=== PATIENT | male | born 1960 | race Native Hawaiian/Other Pacific Islander ===

== ENCOUNTER 2016-02-10 08:16 | Outpatient (CLI) | payer BC ==
[~2016-02-10 08:16] MED LIST: ALLEGRA ALRG180 M1 PO; AMOX500C85 PO; FLUT0.05 NAS; LEVO0.0218 PO; VIAGRA100 MG OR; ZOLP10TA2 PO
[2016-02-10 08:41] LABS: PLATELET COUNT 206 K/uL (142-355)
[2016-02-10 09:09] LABS: POTASSIUM 4.6 mmol/L (3.6-5.2); SODIUM 138 mmol/L (136-145)
== END 2016-02-10 09:16 | disposition home or self-care (01) ==
LOC: LABW 08:16
PROVIDERS: Physician Assistant
DX: E78.5 Hyperlipidemia, unspecified (principal); E03.9 Hypothyroidism, unspecified; R35.1 Nocturia
CPT/HCPCS: 36415; 80053; 80061; 83036; 84153; 84439; 84443; 85027

== ENCOUNTER 2020-01-27 11:09 | Outpatient (CLI) | payer BC | END 2020-01-27 19:14 | disposition home or self-care (01) | LOC: RAD 11:09 | PROVIDERS: ATTEND Internal Medicine | DX: M54.2 Cervicalgia (principal) ==

== ENCOUNTER 2020-11-17 08:37 | Outpatient (CLI) | payer BC | END 2020-11-17 20:03 | disposition home or self-care (01) | LOC: LABW 08:37 | PROVIDERS: ATTEND Specialist | DX: E78.2 Mixed hyperlipidemia (principal); Z79.899 Other long term (current) drug therapy | CPT/HCPCS: 36415; 80061; 80076 ==

== ENCOUNTER 2021-01-03 10:55 | Emergency (ER) | payer BC ==
[~2021-01-03] VITALS: Ht 170.2 cm; Wt 79.4 kg
[2021-01-03 11:08] VITALS: TEMP 97
[2021-01-03 14:06] LABS: PLATELET COUNT 187 K/uL (142-355)
[2021-01-03 14:17] LABS: POTASSIUM 3.9 mmol/L (3.6-5.2)
[2021-01-03 14:53] VITALS: BP 133/80
== END 2021-01-03 14:55 | disposition home or self-care (01) ==
LOC: ED 10:55
PROVIDERS: Emergency Medicine Emergency Medical Services
PROC: 0HBLXZZ Excision of Left Lower Leg Skin, External Approach (ICD-10-PCS; principal; 2021-01-03)
DX: S81.812A Laceration without foreign body, left lower leg, initial encounter (principal); W29.3XXA Contact with powered garden and outdoor hand tools and machinery, initial encounter; Y92.89 Other specified places as the place of occurrence of the external cause; Z20.822 Contact with and (suspected) exposure to COVID-19
CPT/HCPCS: 80053; 85027; 87635; 90471; 90715; 99283; U0003